=== PATIENT | female | born 1995 | race Caucasian/White ===

== ENCOUNTER 2021-02-04 11:48 | Inpatient (IN) | payer OTHER, MEDICARE, MEDICAID ==
[2021-02-04] MEDS ORDERED: Ondansetron ODT 4 MG TAB SL PRN (12:00)
[2021-02-04] MEDS ORDERED: Ondansetron PF 4 MG/2 ML Vial IVP PRN ×3 (12:00→15:00)
[2021-02-04] MEDS ORDERED: D5 1/2 NS w/20 mEq KCL 1,000 ML IV SCH (12:00)
[2021-02-04 12:12] LABS: #Basophils 0.1 thou/uL (0.0-0.2); #Eosinphils 0.1 thou/uL (0.0-0.7); #Lymphocytes 2.1 thou/uL (1.20-3.40); #Monocytes 0.2 thou/uL (0.11-0.59); #Neutrophils 8.8 thou/uL (1.40-6.50); %Basophils 0.6 % (0.0-1.0); %Lymphocytes 18.3 % (21.0-51.0); %Monocytes 2.1 % (0.0-10.0); Hemoglobin 11.6 g/dL (12.0-16.0); Mean Corpuscular HGB CONC 33.9 g/dL (32.0-36.0); Mean Corpuscular Volume 97.3 fL (78.0-98.0); Mean Platelet Volume 5.7 fL (7.4-10.4); Platelet Count 349 thou/uL (130-400); RBC Distribution Width 11.1 % (11.5-14.5); Red Blood Cell (RBC) Count 3.51 mill/uL (4.20-5.40); White Blood Cell (WBC) Count 11.3 thou/uL (4.8-10.8)
[2021-02-04 12:21] LABS: INR-International Normal Ratio 1.2; PTT 30.3 sec (22.9-36.1); Prothrombin Time 15.1 sec (12.0-14.7)
[2021-02-04 12:25] LABS: ALT (SGPT) 72 U/L (8-55); AST (SGOT) 114 U/L (5-34); Albumin 3.5 g/dL (3.5-5.0); Alcohol Less than 10 mg/dL (Less than 10); Alkaline Phosphatase 114 U/L (40-110); Anion Gap 11 mmol/L (10-20); BUN (Urea Nitrogen) 9 mg/dL (7.0-18.7); Bilirubin, Total 0.6 mg/dL (0.2-1.2); Calc. Creatinine Clearance 0 mL/min (70-130); Calcium 8.5 mg/dL (7.8-10.44); Carbon Dioxide 22 mmol/L (22-29); Chloride 109 mmol/L (98-107); Globulin 2.7 g/dL (2.4-3.5); Glucose 132 mg/dL (70-105); Lipase 89 U/L (8-78); Potassium 3.2 mmol/L (3.5-5.1); Protein, Total 6.2 g/dL (6.0-8.3); Sodium 139 mmol/L (136-145)
[2021-02-04] MEDS ORDERED: Ketorolac Tromethamine 30 MG/ML VIAL ONE (12:35)
[2021-02-04] MEDS ORDERED: Gentamicin 300 MG in Sodium Chloride 0.9% 100 ML IVPB SCH (12:45)
[2021-02-04 13:40] LABS: SARS-CoV-2 NAA Rapid Test Not Detected (NotDetected)
[2021-02-04 13:49] LABS: Bacteria/HPF 1+ HPF (None Seen); Bilirubin Negative (Negative); Blood, Urine 3+ (Negative); Clarity Turbid (Clear); Glucose, Urine (Dipstick) Normal (Negative); Ketone, Urine Trace mg/dL (Negative); Leukocyte Negative Leu/uL (Negative); Nitrite Negative (Negative); Protein, Urine (Dipstick) 200 mg/dL (Neg-Trace); RBC/HPF Greater than 50 HPF (0-3); Specific Gravity, Urine 1.028 (1.002-1.036); Squamous Epithelial 0-3 HPF (0-3); Urobilinogen 3 mg/dL (Less than 2)
[2021-02-04 13:55] LABS: Medtox Reader # READER 4
[2021-02-04 13:56] LABS: Amphetamine Detected (NotDetected); Barbiturates Screen Not Detected (NotDetected); Benzodiazepine Screen Not Detected (NotDetected); Cocaine Metabolite Screen Not Detected (NotDetected); Medtox Control Line Valid? VALID (VALID); Methadone Not Detected (NotDetected); Methamphetamine Detected (NotDetected); Opiate Screen Not Detected (NotDetected); Oxycodone Screen Not Detected (NotDetected); Phencyclidine (PCP) Not Detected (NotDetected); THC/Cannabinoid Screen Detected (NotDetected); Tricyclic Screen Not Detected (NotDetected)
[2021-02-04] MEDS ORDERED: Fentanyl 100 MCG/2 ML VIAL SLOW IVP SCH (14:15)
[2021-02-04] MEDS ORDERED: Fentanyl 100 MCG/2 ML VIAL ONE ×2 (14:19→16:42)
[2021-02-04] MEDS ORDERED: Dextrose 50% Abboject 50 ML SYRINGE SLOW IVP PRN (14:50)
[2021-02-04] MEDS ORDERED: Dextrose 5% in Water 1,000 ML IV PRN (14:50)
[2021-02-04] MEDS ORDERED: Morphine 2 MG/ML VIAL SLOW IVP PRN (14:50)
[2021-02-04] MEDS ORDERED: Sodium Chloride 0.9% 1,000 ML IV SCH (15:00)
[2021-02-04] MEDS ORDERED: Cyclobenzaprine 10 MG TAB PO PRN (15:00)
[2021-02-04] MEDS ORDERED: traMADol HCl 50 MG TAB PO PRN (15:01)
[2021-02-04] MEDS: Lactated Ringer's 1,000 ML IV SCH ×2 (15:30→23:50)
[2021-02-04] MEDS ORDERED: CEFAZOLIN 2 GM in Premix Bag 1 BAG IVPB SCH (16:30)
[2021-02-04 16:39] LABS: Magnesium 1.7 mg/dL (1.6-2.6); Phosphorus 2.7 mg/dL (2.3-4.7)
[2021-02-04] MEDS ORDERED: Midazolam HCl 2 mg/2 ml Vial ONE (16:42)
[2021-02-04] MEDS ORDERED: Magnesium Sulfate 2 GM in Sodium Chloride 0.9% 100 ML IVPB SCH (16:44)
[2021-02-04] MEDS ORDERED: Potassium Phosphate 30 MMOL, Magnesium Sulfate 2 GM in Sodium Chloride 0.9% 250 ML IVPB SCH (16:44)
[2021-02-04 17:09] LABS: Pregnancy Test - Urine (BHCG) Negative (Negative); Pregu Control Background? CLEAR/WHITE (CLR/WHITE); Pregu Control Bar Appear? YES (CONTROL BAR); Specific Gravity 1.028 (1.002-1.036)
[2021-02-04] MEDS ORDERED: PHENYLEPHRINE-NS 100 MCG/ML 10 ML SYRINGE ONE (17:18)
[2021-02-04] MEDS ORDERED: Lidocaine 1% (PF) 30 ML VIAL ONE (17:18)
[2021-02-04] MEDS ORDERED: ePHEDrine Sulfate 50 MG/10 ML VIAL ONE (17:18)
[2021-02-04] MEDS ORDERED: PROPOFOL 200 MG/20 ML VIAL ONE (17:18)
[2021-02-04] MEDS ORDERED: Rocuronium Bromide 10 MG/ML (10ML VIAL) ONE (17:18)
[2021-02-04] MEDS ORDERED: SUGAMMADEX SODIUM 200 MG/2 ML VIAL ONE (18:19)
[2021-02-04] MEDS: Ketorolac Tromethamine 30 MG/ML VIAL IVP SCH ×2 (19:42→23:01)
[2021-02-04] MEDS: Acetaminophen 500 MG TAB PO SCH ×2 (19:43→23:15)
[2021-02-04] MEDS: traMADol HCl 50 MG TAB PO SCH ×2 (19:45→23:00)
[2021-02-04] MEDS: Famotidine/PF 20 mg/2ml Vial SLOW IVP SCH (20:46)
[2021-02-04] MEDS: Senokot S 8.6-50 MG TAB PO SCH ×2 (20:46→21:52)
[2021-02-04] MEDS: Gabapentin 100 MG CAP PO SCH (20:46)
[2021-02-04] MEDS: CEFAZOLIN 2 GM in Premix Bag 1 BAG IVPB SCH (22:59)
[2021-02-05] MEDS: Morphine 4 MG/ML VIAL SLOW IVP PRN ×3 (00:19→17:41)
[2021-02-05 04:30] LABS: #Lymphocytes 0.8 thou/uL (1.20-3.40); #Monocytes 0.4 thou/uL (0.11-0.59); #Neutrophils 10.7 thou/uL (1.40-6.50); %Basophils 0.1 % (0.0-1.0); %Eosinophils 0.3 % (0.0-10.0); %Lymphocytes 6.8 % (21.0-51.0); %Neutrophils 89.9 % (42.0-75.0); Hemoglobin 7.5 g/dL (12.0-16.0); Mean Corpuscular HGB CONC 34.8 g/dL (32.0-36.0); Mean Corpuscular Hemoglobin 34.4 pg (27.0-31.0); Mean Corpuscular Volume 98.9 fL (78.0-98.0); Mean Platelet Volume 6.1 fL (7.4-10.4); Platelet Count 240 thou/uL (130-400); RBC Distribution Width 11.1 % (11.5-14.5); Red Blood Cell (RBC) Count 2.17 mill/uL (4.20-5.40)
[2021-02-05 04:38] LABS: Phosphorus 5.9 mg/dL (2.3-4.7)
[2021-02-05 04:44] LABS: Anion Gap 11 mmol/L (10-20); BUN (Urea Nitrogen) 11 mg/dL (7.0-18.7); Calc. Creatinine Clearance 136 mL/min (70-130); Calcium 7.7 mg/dL (7.8-10.44); Carbon Dioxide 23 mmol/L (22-29); Chloride 109 mmol/L (98-107); Glucose 156 mg/dL (70-105); Magnesium 2.1 mg/dL (1.6-2.6); Potassium 4.6 mmol/L (3.5-5.1); Sodium 138 mmol/L (136-145)
[2021-02-05] MEDS: CEFAZOLIN 2 GM in Premix Bag 1 BAG IVPB SCH ×3 (05:06→21:47)
[2021-02-05] MEDS: traMADol HCl 50 MG TAB PO SCH ×4 (05:07→23:39)
[2021-02-05] MEDS: Ketorolac Tromethamine 30 MG/ML VIAL IVP SCH ×3 (05:08→17:33)
[2021-02-05] MEDS: Acetaminophen 500 MG TAB PO SCH ×4 (05:09→23:40)
[2021-02-05] MEDS: Famotidine/PF 20 mg/2ml Vial SLOW IVP SCH ×2 (09:58→21:50)
[2021-02-05] MEDS: Gabapentin 100 MG CAP PO SCH ×3 (09:58→21:50)
[2021-02-05] MEDS: Ascorbic Acid 500 mg Chewable Tablet PO SCH ×2 (10:05→21:50)
[2021-02-05] MEDS: Ferrous Sulfate 325 MG TAB PO SCH ×2 (10:08→21:50)
[2021-02-05] MEDS: Polyethylene Glycol 3350 17 GM Packet PO SCH (10:09)
[2021-02-05] MEDS: Senokot S 8.6-50 MG TAB PO SCH ×2 (10:09→21:49)
[2021-02-05] MEDS: Lactated Ringer's 1,000 ML IV SCH ×2 (10:12→15:14)
[2021-02-05] MEDS ORDERED: Acetaminophen 500 MG TAB ONE (12:42)
[2021-02-05] MEDS ORDERED: traMADol HCl 50 MG TAB ONE (12:43)
[2021-02-05] MEDS ORDERED: Ketorolac Tromethamine 30 MG/ML VIAL ONE (12:43)
[2021-02-05 16:02] LABS: Hemoglobin 6.5 g/dL (12.0-16.0); Mean Corpuscular HGB CONC 33.9 g/dL (32.0-36.0); Mean Corpuscular Hemoglobin 33.4 pg (27.0-31.0); Mean Corpuscular Volume 98.4 fL (78.0-98.0); Mean Platelet Volume 6.1 fL (7.4-10.4); Platelet Count 212 thou/uL (130-400); RBC Distribution Width 11.1 % (11.5-14.5); Red Blood Cell (RBC) Count 1.94 mill/uL (4.20-5.40); White Blood Cell (WBC) Count 10.8 thou/uL (4.8-10.8)
[2021-02-05 16:26] LABS: Band 25 % (5-11); Eosinophils 2 % (0-10); Lymphocytes 19 % (21-51); MDiff Complete? YES; Monocytes 2 % (0-10); Neutrophil 52 % (42-75); Platelet Morphology Comment Appears Adequate; Polychromasia SLIGHT = 2-3 cells (100X) (0-2/hpf)
[2021-02-06 03:39] LABS: #Eosinphils 0.1 thou/uL (0.0-0.7); #Lymphocytes 2.6 thou/uL (1.20-3.40); #Monocytes 0.5 thou/uL (0.11-0.59); #Neutrophils 5.4 thou/uL (1.40-6.50); %Basophils 0.4 % (0.0-1.0); %Eosinophils 1.7 % (0.0-10.0); %Lymphocytes 30.4 % (21.0-51.0); %Monocytes 5.2 % (0.0-10.0); %Neutrophils 62.3 % (42.0-75.0); Hemoglobin 6.9 g/dL (12.0-16.0); Mean Platelet Volume 6.4 fL (7.4-10.4); Platelet Count 167 thou/uL (130-400); Red Blood Cell (RBC) Count 2.08 mill/uL (4.20-5.40); White Blood Cell (WBC) Count 8.6 thou/uL (4.8-10.8)
[2021-02-06 03:58] LABS: Anion Gap 10 mmol/L (10-20); BUN (Urea Nitrogen) 18 mg/dL (7.0-18.7); Calc. Creatinine Clearance 144 mL/min (70-130); Carbon Dioxide 23 mmol/L (22-29); Chloride 108 mmol/L (98-107); Glucose 106 mg/dL (70-105); Potassium 4.2 mmol/L (3.5-5.1); Sodium 137 mmol/L (136-145)
[2021-02-06] MEDS: traMADol HCl 50 MG TAB PO SCH ×4 (05:09→22:35)
[2021-02-06] MEDS: Acetaminophen 500 MG TAB PO SCH ×4 (05:10→22:35)
[2021-02-06] MEDS: CEFAZOLIN 2 GM in Premix Bag 1 BAG IVPB SCH ×3 (05:11→22:27)
[2021-02-06 05:29] VITALS: BMI 26.9
[2021-02-06] MEDS ORDERED: Morphine 4 MG/ML VIAL SLOW IVP PRN (05:41)
[2021-02-06] MEDS ORDERED: Ferrous Sulfate 325 MG TAB PO SCH (08:00)
[2021-02-06] MEDS ORDERED: Lidocaine 2% PF 5 ML VIAL FS SCH (09:00)
[2021-02-06] MEDS ORDERED: Ascorbic Acid 500 mg Chewable Tablet PO SCH (09:00)
[2021-02-06] MEDS ORDERED: Dextrose 5%-Lactated Ringers 1,000 ML IV SCH (10:15)
[2021-02-06] MEDS ORDERED: Midazolam HCl 2 mg/2 ml Vial ONE (10:21)
[2021-02-06] MEDS: Polyethylene Glycol 3350 17 GM Packet PO SCH (11:28)
[2021-02-06] MEDS: Senokot S 8.6-50 MG TAB PO SCH ×2 (11:28→20:03)
[2021-02-06] MEDS ORDERED: Midazolam HCl 2 mg/2 ml Vial IVP SCH (11:30)
[2021-02-06] MEDS ORDERED: Fentanyl 100 MCG/2 ML VIAL SLOW IVP SCH (11:30)
[2021-02-06] MEDS: Ascorbic Acid 500 mg Chewable Tablet PO SCH ×2 (11:31→19:57)
[2021-02-06] MEDS: Ferrous Sulfate 325 MG TAB PO SCH ×2 (11:31→19:57)
[2021-02-06] MEDS: Gabapentin 100 MG CAP PO SCH ×4 (11:39→19:57)
[2021-02-06] MEDS: Famotidine/PF 20 mg/2ml Vial SLOW IVP SCH ×3 (11:39→20:03)
[2021-02-06] MEDS ORDERED: CEFAZOLIN 2 GM in Premix Bag 1 BAG IVPB SCH (12:15)
[2021-02-06] MEDS ORDERED: Morphine 4 MG/ML VIAL SLOW IVP SCH ×2 (15:15→15:30)
[2021-02-06] MEDS: Ketorolac Tromethamine 30 MG/ML VIAL IVP SCH ×2 (17:55→22:35)
[2021-02-06] MEDS ORDERED: Ibuprofen 200 MG TAB PO SCH (22:00)
[2021-02-07] MEDS: Ketorolac Tromethamine 30 MG/ML VIAL IVP SCH ×4 (05:31→23:59)
[2021-02-07] MEDS: Acetaminophen 500 MG TAB PO SCH ×4 (05:31→23:58)
[2021-02-07] MEDS: traMADol HCl 50 MG TAB PO SCH ×4 (05:31→23:59)
[2021-02-07 07:12] LABS: #Eosinphils 0.2 thou/uL (0.0-0.7); #Monocytes 0.4 thou/uL (0.11-0.59); #Neutrophils 3.7 thou/uL (1.40-6.50); %Basophils 0.6 % (0.0-1.0); %Eosinophils 3.7 % (0.0-10.0); %Lymphocytes 31.1 % (21.0-51.0); %Monocytes 5.7 % (0.0-10.0); Mean Corpuscular HGB CONC 34.7 g/dL (32.0-36.0); Mean Platelet Volume 6.7 fL (7.4-10.4); Platelet Count 174 thou/uL (130-400); RBC Distribution Width 12.5 % (11.5-14.5); Red Blood Cell (RBC) Count 2.06 mill/uL (4.20-5.40); White Blood Cell (WBC) Count 6.3 thou/uL (4.8-10.8)
[2021-02-07 07:26] LABS: Anion Gap 8 mmol/L (10-20); BUN (Urea Nitrogen) 14 mg/dL (7.0-18.7); Calc. Creatinine Clearance 172 mL/min (70-130); Calcium 7.9 mg/dL (7.8-10.44); Carbon Dioxide 27 mmol/L (22-29); Chloride 107 mmol/L (98-107); Glucose 92 mg/dL (70-105); Potassium 4.4 mmol/L (3.5-5.1); Sodium 138 mmol/L (136-145)
[2021-02-07] MEDS: Ferrous Sulfate 325 MG TAB PO SCH ×2 (08:37→20:41)
[2021-02-07] MEDS: Ascorbic Acid 500 mg Chewable Tablet PO SCH ×2 (08:37→20:40)
[2021-02-07] MEDS: Cyclobenzaprine 10 MG TAB PO PRN ×2 (08:37→18:08)
[2021-02-07] MEDS: Polyethylene Glycol 3350 17 GM Packet PO SCH (08:37)
[2021-02-07] MEDS: Famotidine/PF 20 mg/2ml Vial SLOW IVP SCH ×3 (08:37→20:41)
[2021-02-07] MEDS: Gabapentin 100 MG CAP PO SCH ×3 (08:38→20:41)
[2021-02-07] MEDS: Senokot S 8.6-50 MG TAB PO SCH ×2 (08:38→20:42)
[2021-02-07] MEDS ORDERED: Fentanyl 100 MCG/2 ML VIAL ONE ×4 (11:31→17:34)
[2021-02-07] MEDS ORDERED: Dexmedetomidine 200 MCG/2 ML VIAL ONE (11:58)
[2021-02-07] MEDS ORDERED: Fentanyl 250 MCG/5 ML VIAL ONE (12:22)
[2021-02-07] MEDS ORDERED: Midazolam HCl 2 mg/2 ml Vial ONE (12:22)
[2021-02-07] MEDS ORDERED: PROPOFOL 200 MG/20 ML VIAL ONE (12:55)
[2021-02-07] MEDS ORDERED: Glycopyrrolate 0.2 MG/ML 5 ML SYRINGE ONE (12:55)
[2021-02-07] MEDS ORDERED: Dexamethasone 20 MG/5 ML VIAL ONE (12:55)
[2021-02-07] MEDS ORDERED: Ondansetron PF 4 MG/2 ML Vial ONE (12:55)
[2021-02-07] MEDS ORDERED: Lidocaine 1% PF 5 ML VIAL ONE (12:55)
[2021-02-07] MEDS ORDERED: Rocuronium Bromide 10 MG/ML (10ML VIAL) ONE (12:55)
[2021-02-07] MEDS ORDERED: Gentamicin 80 MG/2 ML VIAL ONE (14:10)
[2021-02-07] MEDS ORDERED: Ondansetron HCl/PF 4 MG/2 ML Vial IVP PRN (16:47)
[2021-02-07] MEDS ORDERED: Promethazine HCl 25 MG/ML VIAL SLOW IVP PRN (16:47)
[2021-02-07] MEDS ORDERED: Promethazine HCl 25 MG/ML VIAL IM PRN (16:47)
[2021-02-07] MEDS ORDERED: Fentanyl 100 MCG/2 ML VIAL SLOW IVP SCH (19:00)
[2021-02-07] MEDS: CEFAZOLIN 2 GM in Premix Bag 1 BAG IVPB SCH (20:40)
[2021-02-07] MEDS: lamoTRIgine 100 MG TAB PO SCH (20:41)
[2021-02-07] MEDS ORDERED: Morphine 4 MG/ML VIAL SLOW IVP PRN (20:54)
[2021-02-08] MEDS: CEFAZOLIN 2 GM in Premix Bag 1 BAG IVPB SCH ×3 (04:32→20:16)
[2021-02-08] MEDS: Acetaminophen 500 MG TAB PO SCH ×3 (05:34→17:36)
[2021-02-08] MEDS: traMADol HCl 50 MG TAB PO SCH ×4 (05:34→20:26)
[2021-02-08] MEDS: Ketorolac Tromethamine 30 MG/ML VIAL IVP SCH ×3 (05:35→17:37)
[2021-02-08 06:11] LABS: #Eosinphils 0.2 thou/uL (0.0-0.7); #Lymphocytes 1.5 thou/uL (1.20-3.40); #Monocytes 0.3 thou/uL (0.11-0.59); #Neutrophils 2.6 thou/uL (1.40-6.50); %Basophils 0.6 % (0.0-1.0); %Eosinophils 4.1 % (0.0-10.0); %Monocytes 6.1 % (0.0-10.0); %Neutrophils 57.3 % (42.0-75.0); Hemoglobin 7.8 g/dL (12.0-16.0); Mean Corpuscular HGB CONC 34.3 g/dL (32.0-36.0); Mean Corpuscular Hemoglobin 32.4 pg (27.0-31.0); Mean Corpuscular Volume 94.5 fL (78.0-98.0); Mean Platelet Volume 6.5 fL (7.4-10.4); Platelet Count 194 thou/uL (130-400); Red Blood Cell (RBC) Count 2.42 mill/uL (4.20-5.40); White Blood Cell (WBC) Count 4.6 thou/uL (4.8-10.8)
[2021-02-08 06:31] LABS: Anion Gap 9 mmol/L (10-20); BUN (Urea Nitrogen) 11 mg/dL (7.0-18.7); Calc. Creatinine Clearance 185 mL/min (70-130); Calcium 7.6 mg/dL (7.8-10.44); Carbon Dioxide 26 mmol/L (22-29); Chloride 105 mmol/L (98-107); Glucose 101 mg/dL (70-105); Magnesium 1.7 mg/dL (1.6-2.6); Phosphorus 3.6 mg/dL (2.3-4.7); Potassium 4.2 mmol/L (3.5-5.1); Sodium 136 mmol/L (136-145)
[2021-02-08] MEDS ORDERED: Magnesium 2 GM/50 ML 2 GM in Premix Bag 1 BAG IVPB SCH (07:00)
[2021-02-08] MEDS: lamoTRIgine 100 MG TAB PO SCH ×2 (08:43→20:21)
[2021-02-08] MEDS: Ascorbic Acid 500 mg Chewable Tablet PO SCH ×2 (08:43→20:24)
[2021-02-08] MEDS: Polyethylene Glycol 3350 17 GM Packet PO SCH (08:43)
[2021-02-08] MEDS: Famotidine/PF 20 mg/2ml Vial SLOW IVP SCH ×2 (08:44→20:26)
[2021-02-08] MEDS: Gabapentin 100 MG CAP PO SCH ×3 (08:44→20:24)
[2021-02-08] MEDS: Ferrous Sulfate 325 MG TAB PO SCH ×2 (08:44→20:24)
[2021-02-08] MEDS: Senokot S 8.6-50 MG TAB PO SCH ×2 (08:44→20:21)
[2021-02-08] MEDS ORDERED: traZODone HCl 150 MG TAB PO SCH ×2 (09:00→12:15)
[2021-02-09] MEDS: Acetaminophen 500 MG TAB PO SCH ×4 (00:57→12:37)
[2021-02-09] MEDS: traMADol HCl 50 MG TAB PO SCH ×4 (03:21→21:00)
[2021-02-09] MEDS: Cyclobenzaprine 10 MG TAB PO PRN ×2 (03:21→21:20)
[2021-02-09] MEDS: CEFAZOLIN 2 GM in Premix Bag 1 BAG IVPB SCH ×3 (03:24→21:32)
[2021-02-09 07:52] LABS: #Eosinphils 0.2 thou/uL (0.0-0.7); #Lymphocytes 1.2 thou/uL (1.20-3.40); #Monocytes 0.6 thou/uL (0.11-0.59); #Neutrophils 4.8 thou/uL (1.40-6.50); %Eosinophils 2.5 % (0.0-10.0); %Lymphocytes 17.6 % (21.0-51.0); %Monocytes 8.2 % (0.0-10.0); %Neutrophils 71.7 % (42.0-75.0); Hemoglobin 7.8 g/dL (12.0-16.0); Mean Corpuscular Hemoglobin 31.8 pg (27.0-31.0); Mean Corpuscular Volume 96.3 fL (78.0-98.0); Mean Platelet Volume 6.3 fL (7.4-10.4); Platelet Count 260 thou/uL (130-400); RBC Distribution Width 14.3 % (11.5-14.5); Red Blood Cell (RBC) Count 2.45 mill/uL (4.20-5.40); White Blood Cell (WBC) Count 6.8 thou/uL (4.8-10.8)
[2021-02-09 08:15] LABS: Anion Gap 9 mmol/L (10-20); BUN (Urea Nitrogen) 8 mg/dL (7.0-18.7); Calc. Creatinine Clearance 205 mL/min (70-130); Calcium 7.7 mg/dL (7.8-10.44); Carbon Dioxide 26 mmol/L (22-29); Chloride 103 mmol/L (98-107); Glucose 106 mg/dL (70-105); Magnesium 1.6 mg/dL (1.6-2.6); Phosphorus 3.2 mg/dL (2.3-4.7); Potassium 3.7 mmol/L (3.5-5.1); Sodium 134 mmol/L (136-145)
[2021-02-09] MEDS ORDERED: Magnesium 2 GM/50 ML 2 GM in Premix Bag 1 BAG IVPB SCH (09:00)
[2021-02-09] MEDS: Ascorbic Acid 500 mg Chewable Tablet PO SCH ×2 (09:44→21:04)
[2021-02-09] MEDS: Enoxaparin Sodium 40 MG/0.4 ML SYRINGE SC SCH ×2 (09:44→10:03)
[2021-02-09] MEDS: Famotidine/PF 20 mg/2ml Vial SLOW IVP SCH ×2 (09:44→21:03)
[2021-02-09] MEDS: Ferrous Sulfate 325 MG TAB PO SCH ×2 (09:45→21:00)
[2021-02-09] MEDS: Gabapentin 100 MG CAP PO SCH ×3 (09:45→21:01)
[2021-02-09] MEDS: lamoTRIgine 100 MG TAB PO SCH ×2 (09:46→20:59)
[2021-02-09] MEDS: Polyethylene Glycol 3350 17 GM Packet PO SCH (09:46)
[2021-02-09] MEDS: traZODone HCl 150 MG TAB PO SCH (09:47)
[2021-02-09] MEDS: Senokot S 8.6-50 MG TAB PO SCH ×2 (09:48→21:00)
[2021-02-09] MEDS: Ibuprofen 600 MG TAB PO SCH ×2 (12:31→21:03)
[2021-02-09] MEDS: Acetaminophen 325 MG TAB PO SCH ×2 (12:36→16:11)
[2021-02-10] MEDS: Acetaminophen 325 MG TAB PO SCH ×4 (00:09→17:40)
[2021-02-10] MEDS: traMADol HCl 50 MG TAB PO SCH ×4 (03:49→21:19)
[2021-02-10] MEDS: Cyclobenzaprine 10 MG TAB PO PRN (03:56)
[2021-02-10] MEDS: CEFAZOLIN 2 GM in Premix Bag 1 BAG IVPB SCH ×3 (05:34→21:16)
[2021-02-10] MEDS: Ibuprofen 600 MG TAB PO SCH ×2 (05:35→14:12)
[2021-02-10] MEDS: HYDROcodone/Acetaminophen 10/325 mg Tablet PO PRN (06:07)
[2021-02-10 07:54] LABS: #Eosinphils 0.2 thou/uL (0.0-0.7); #Lymphocytes 1.5 thou/uL (1.20-3.40); #Monocytes 0.2 thou/uL (0.11-0.59); %Basophils 0.1 % (0.0-1.0); %Eosinophils 2.6 % (0.0-10.0); %Lymphocytes 21.5 % (21.0-51.0); %Neutrophils 72.8 % (42.0-75.0); Hemoglobin 7.6 g/dL (12.0-16.0); Mean Corpuscular HGB CONC 33.3 g/dL (32.0-36.0); Mean Corpuscular Hemoglobin 32.3 pg (27.0-31.0); Mean Platelet Volume 5.9 fL (7.4-10.4); Platelet Count 317 thou/uL (130-400); RBC Distribution Width 13.8 % (11.5-14.5); Red Blood Cell (RBC) Count 2.34 mill/uL (4.20-5.40); White Blood Cell (WBC) Count 6.8 thou/uL (4.8-10.8)
[2021-02-10] MEDS: traZODone HCl 150 MG TAB PO SCH (09:08)
[2021-02-10] MEDS: Gabapentin 100 MG CAP PO SCH ×3 (09:08→21:17)
[2021-02-10] MEDS: lamoTRIgine 100 MG TAB PO SCH ×2 (09:09→21:18)
[2021-02-10] MEDS: Ferrous Sulfate 325 MG TAB PO SCH ×2 (09:11→21:17)
[2021-02-10] MEDS: Famotidine/PF 20 mg/2ml Vial SLOW IVP SCH ×2 (09:11→21:17)
[2021-02-10] MEDS: Enoxaparin Sodium 40 MG/0.4 ML SYRINGE SC SCH (09:11)
[2021-02-10] MEDS: Ascorbic Acid 500 mg Chewable Tablet PO SCH ×2 (09:11→21:16)
[2021-02-10] MEDS: Senokot S 8.6-50 MG TAB PO SCH ×2 (09:13→21:19)
[2021-02-10] MEDS: Polyethylene Glycol 3350 17 GM Packet PO SCH (09:13)
[2021-02-10] MEDS ORDERED: Magnesium 2 GM/50 ML 2 GM in Premix Bag 1 BAG IVPB SCH (09:15)
[2021-02-10] MEDS ORDERED: Magnesium Sulfate 2 GM in Sodium Chloride 0.9% 100 ML IVPB SCH (09:15)
[2021-02-10] MEDS: Ibuprofen 200 MG TAB PO SCH (22:58)
[2021-02-11] MEDS: Acetaminophen 325 MG TAB PO SCH ×4 (00:34→17:07)
[2021-02-11] MEDS: Ibuprofen 200 MG TAB PO SCH ×4 (00:49→20:55)
[2021-02-11] MEDS: HYDROcodone/Acetaminophen 10/325 mg Tablet PO PRN ×3 (00:50→17:07)
[2021-02-11] MEDS: traMADol HCl 50 MG TAB PO SCH ×4 (02:40→20:55)
[2021-02-11] MEDS: CEFAZOLIN 2 GM in Premix Bag 1 BAG IVPB SCH ×2 (05:11→14:05)
[2021-02-11] MEDS ORDERED: Furosemide 20 MG/2 ML VIAL SLOW IVP SCH (09:00)
[2021-02-11] MEDS: Enoxaparin Sodium 40 MG/0.4 ML SYRINGE SC SCH (09:04)
[2021-02-11] MEDS: Polyethylene Glycol 3350 17 GM Packet PO SCH (09:05)
[2021-02-11] MEDS: lamoTRIgine 100 MG TAB PO SCH ×2 (09:05→20:59)
[2021-02-11] MEDS: Senokot S 8.6-50 MG TAB PO SCH ×2 (09:05→20:59)
[2021-02-11] MEDS: traZODone HCl 150 MG TAB PO SCH (09:06)
[2021-02-11] MEDS: Ferrous Sulfate 325 MG TAB PO SCH ×2 (09:07→20:57)
[2021-02-11] MEDS: Ascorbic Acid 500 mg Chewable Tablet PO SCH ×2 (09:07→20:58)
[2021-02-11] MEDS: Gabapentin 100 MG CAP PO SCH ×3 (09:07→20:55)
[2021-02-11] MEDS: Famotidine/PF 20 mg/2ml Vial SLOW IVP SCH ×2 (09:08→09:16)
[2021-02-11 12:23] LABS: Band 11 % (5-11); Eosinophils 1 % (0-10); Hemoglobin 7.6 g/dL (12.0-16.0); Lymphocytes 16 % (21-51); MDiff Complete? YES; Mean Corpuscular HGB CONC 33.4 g/dL (32.0-36.0); Mean Corpuscular Hemoglobin 32.2 pg (27.0-31.0); Mean Corpuscular Volume 96.3 fL (78.0-98.0); Mean Platelet Volume 6.2 fL (7.4-10.4); Metamyelocyte 1 % (0-0); Monocytes 5 % (0-10); Myelocyte 2 % (0-0); Neutrophil 64 % (42-75); Platelet Count 443 thou/uL (130-400); Platelet Morphology Comment Appears Increased; Polychromasia SLIGHT = 2-3 cells (100X) (0-2/hpf); RBC Distribution Width 13.3 % (11.5-14.5); Red Blood Cell (RBC) Count 2.35 mill/uL (4.20-5.40)
[2021-02-11] MEDS: Cyclobenzaprine 10 MG TAB PO PRN (12:38)
[2021-02-11 13:32] LABS: Bacteria/HPF None Seen HPF (None Seen); Bilirubin Negative (Negative); Blood, Urine Negative (Negative); Clarity Clear (Clear); Glucose, Urine (Dipstick) Normal (Negative); Ketone, Urine Negative (Negative); Leukocyte Negative Leu/uL (Negative); Nitrite Negative (Negative); Protein, Urine (Dipstick) Negative (Neg-Trace); RBC/HPF 0-3 HPF (0-3); Specific Gravity, Urine 1.015 (1.002-1.036); Squamous Epithelial 0-3 HPF (0-3); Urobilinogen Normal mg/dL (Less than 2); WBC/HPF 0-3 HPF (0-3); pH, Urine 5.5 (5.0-9.0)
[2021-02-11 13:37] LABS: Urine Culture Reflex No No
[2021-02-12] MEDS: Acetaminophen 325 MG TAB PO SCH ×5 (00:01→23:37)
[2021-02-12] MEDS: HYDROcodone/Acetaminophen 10/325 mg Tablet PO PRN ×3 (01:22→21:37)
[2021-02-12] MEDS: traMADol HCl 50 MG TAB PO SCH ×5 (02:00→20:33)
[2021-02-12 05:41] LABS: #Eosinphils 0.3 thou/uL (0.0-0.7); #Lymphocytes 2.2 thou/uL (1.20-3.40); #Monocytes 0.7 thou/uL (0.11-0.59); #Neutrophils 3.6 thou/uL (1.40-6.50); %Basophils 0.2 % (0.0-1.0); %Eosinophils 3.7 % (0.0-10.0); %Lymphocytes 32.9 % (21.0-51.0); %Monocytes 9.5 % (0.0-10.0); %Neutrophils 53.6 % (42.0-75.0); Hemoglobin 7.3 g/dL (12.0-16.0); Mean Corpuscular HGB CONC 31.6 g/dL (32.0-36.0); Mean Corpuscular Hemoglobin 30.7 pg (27.0-31.0); Mean Corpuscular Volume 97.1 fL (78.0-98.0); Mean Platelet Volume 7.1 fL (7.4-10.4); Platelet Count 243 thou/uL (130-400); RBC Distribution Width 13.5 % (11.5-14.5); Red Blood Cell (RBC) Count 2.38 mill/uL (4.20-5.40); White Blood Cell (WBC) Count 6.8 thou/uL (4.8-10.8)
[2021-02-12 05:58] LABS: Anion Gap 10 mmol/L (10-20); BUN (Urea Nitrogen) 10 mg/dL (7.0-18.7); Calc. Creatinine Clearance 201 mL/min (70-130); Calcium 8.3 mg/dL (7.8-10.44); Carbon Dioxide 28 mmol/L (22-29); Chloride 102 mmol/L (98-107); Glucose 84 mg/dL (70-105); Magnesium 1.7 mg/dL (1.6-2.6); Phosphorus 4.6 mg/dL (2.3-4.7); Potassium 4.1 mmol/L (3.5-5.1); Sodium 136 mmol/L (136-145)
[2021-02-12] MEDS: Ibuprofen 200 MG TAB PO SCH ×3 (06:01→21:37)
[2021-02-12] MEDS: Polyethylene Glycol 3350 17 GM Packet PO SCH (09:00)
[2021-02-12] MEDS: Enoxaparin Sodium 40 MG/0.4 ML SYRINGE SC SCH (09:02)
[2021-02-12] MEDS: traZODone HCl 150 MG TAB PO SCH (09:02)
[2021-02-12] MEDS: Senokot S 8.6-50 MG TAB PO SCH ×2 (09:02→20:34)
[2021-02-12] MEDS: Ascorbic Acid 500 mg Chewable Tablet PO SCH ×3 (09:02→20:38)
[2021-02-12] MEDS: Ferrous Sulfate 325 MG TAB PO SCH ×2 (09:02→20:34)
[2021-02-12] MEDS: lamoTRIgine 100 MG TAB PO SCH ×2 (09:02→20:33)
[2021-02-12] MEDS: Gabapentin 100 MG CAP PO SCH ×3 (09:03→20:32)
[2021-02-12] MEDS: Cyclobenzaprine 10 MG TAB PO PRN (18:01)
[2021-02-13] MEDS: traMADol HCl 50 MG TAB PO SCH ×4 (03:27→20:48)
[2021-02-13] MEDS: Ibuprofen 200 MG TAB PO SCH ×3 (05:04→21:06)
[2021-02-13] MEDS: HYDROcodone/Acetaminophen 10/325 mg Tablet PO PRN ×2 (05:05→14:56)
[2021-02-13] MEDS: Acetaminophen 325 MG TAB PO SCH ×3 (05:05→18:13)
[2021-02-13] MEDS: traZODone HCl 150 MG TAB PO SCH (08:45)
[2021-02-13] MEDS: Senokot S 8.6-50 MG TAB PO SCH ×2 (08:45→20:53)
[2021-02-13] MEDS: Ferrous Sulfate 325 MG TAB PO SCH ×2 (08:46→20:52)
[2021-02-13] MEDS: Gabapentin 100 MG CAP PO SCH ×3 (08:46→20:48)
[2021-02-13] MEDS: lamoTRIgine 100 MG TAB PO SCH ×2 (08:47→20:52)
[2021-02-13] MEDS: Enoxaparin Sodium 40 MG/0.4 ML SYRINGE SC SCH (08:48)
[2021-02-13] MEDS: Ascorbic Acid 500 mg Chewable Tablet PO SCH ×2 (08:53→20:53)
[2021-02-13] MEDS: Polyethylene Glycol 3350 17 GM Packet PO SCH (08:54)
[2021-02-14] MEDS: Acetaminophen 325 MG TAB PO SCH ×2 (00:42→05:42)
[2021-02-14] MEDS: traMADol HCl 50 MG TAB PO SCH ×5 (02:21→20:44)
[2021-02-14] MEDS: HYDROcodone/Acetaminophen 10/325 mg Tablet PO PRN ×2 (02:21→08:24)
[2021-02-14] MEDS: Ibuprofen 200 MG TAB PO SCH (05:42)
[2021-02-14] MEDS: Gabapentin 100 MG CAP PO SCH ×3 (08:16→20:43)
[2021-02-14] MEDS: Senokot S 8.6-50 MG TAB PO SCH ×2 (08:17→20:43)
[2021-02-14] MEDS: Enoxaparin Sodium 40 MG/0.4 ML SYRINGE SC SCH (08:17)
[2021-02-14] MEDS: Ferrous Sulfate 325 MG TAB PO SCH ×2 (08:17→20:45)
[2021-02-14] MEDS: lamoTRIgine 100 MG TAB PO SCH ×2 (08:17→20:44)
[2021-02-14] MEDS: traZODone HCl 150 MG TAB PO SCH (08:17)
[2021-02-14] MEDS: Ascorbic Acid 500 mg Chewable Tablet PO SCH ×3 (08:17→20:44)
[2021-02-14] MEDS: Polyethylene Glycol 3350 17 GM Packet PO SCH (08:18)
[2021-02-14] MEDS: Acetaminophen 500 MG TAB PO SCH ×2 (14:16→19:09)
[2021-02-14] MEDS: cloNIDine 0.1 MG TAB PO SCH ×2 (14:17→19:09)
[2021-02-14] MEDS: Ibuprofen 600 MG TAB PO SCH ×2 (14:24→20:43)
[2021-02-14] MEDS: Cyclobenzaprine 10 MG TAB PO PRN (19:20)
[2021-02-15] MEDS: cloNIDine 0.1 MG TAB PO SCH ×4 (00:14→17:11)
[2021-02-15] MEDS: Acetaminophen 500 MG TAB PO SCH ×4 (00:17→17:11)
[2021-02-15] MEDS: traMADol HCl 50 MG TAB PO SCH ×3 (03:25→15:50)
[2021-02-15] MEDS: Ibuprofen 600 MG TAB PO SCH ×3 (05:26→21:32)
[2021-02-15] MEDS: Gabapentin 100 MG CAP PO SCH ×3 (09:19→21:32)
[2021-02-15] MEDS: Senokot S 8.6-50 MG TAB PO SCH ×2 (09:19→21:36)
[2021-02-15] MEDS: Ascorbic Acid 500 mg Chewable Tablet PO SCH ×2 (09:20→21:36)
[2021-02-15] MEDS: lamoTRIgine 100 MG TAB PO SCH ×2 (09:20→21:32)
[2021-02-15] MEDS: Enoxaparin Sodium 40 MG/0.4 ML SYRINGE SC SCH ×2 (09:20→21:35)
[2021-02-15] MEDS: Ferrous Sulfate 325 MG TAB PO SCH ×2 (09:20→21:32)
[2021-02-15] MEDS: Polyethylene Glycol 3350 17 GM Packet PO SCH (09:21)
[2021-02-15] MEDS: traZODone HCl 150 MG TAB PO SCH (09:21)
[2021-02-15] MEDS: Cyclobenzaprine 10 MG TAB PO PRN (19:25)
[2021-02-15] MEDS ORDERED: diphenhydrAMINE 25 MG CAP PO PRN (19:35)
[2021-02-15] MEDS ORDERED: Acetaminophen/Codeine 30-300mg Tablet PO SCH (23:59)
[2021-02-16] MEDS: cloNIDine 0.1 MG TAB PO SCH ×4 (00:46→16:47)
[2021-02-16] MEDS: Acetaminophen 325 MG TAB PO SCH ×4 (00:46→16:47)
[2021-02-16] MEDS: Acetaminophen/Codeine 30-300mg Tablet PO SCH ×4 (02:01→20:37)
[2021-02-16] MEDS: Ibuprofen 600 MG TAB PO SCH ×3 (05:30→20:41)
[2021-02-16] MEDS: Gabapentin 100 MG CAP PO SCH ×3 (08:58→20:42)
[2021-02-16] MEDS: traZODone HCl 150 MG TAB PO SCH (08:59)
[2021-02-16] MEDS: Ascorbic Acid 500 mg Chewable Tablet PO SCH ×2 (09:00→20:43)
[2021-02-16] MEDS: Polyethylene Glycol 3350 17 GM Packet PO SCH (09:01)
[2021-02-16] MEDS: Senokot S 8.6-50 MG TAB PO SCH ×2 (09:01→20:44)
[2021-02-16] MEDS: lamoTRIgine 100 MG TAB PO SCH ×2 (09:01→20:44)
[2021-02-16] MEDS: Enoxaparin Sodium 40 MG/0.4 ML SYRINGE SC SCH ×3 (09:02→21:04)
[2021-02-16] MEDS: Ferrous Sulfate 325 MG TAB PO SCH ×3 (09:02→20:43)
[2021-02-17] MEDS: Acetaminophen 325 MG TAB PO SCH ×4 (00:33→17:20)
[2021-02-17] MEDS: cloNIDine 0.1 MG TAB PO SCH ×4 (00:33→17:20)
[2021-02-17] MEDS: Acetaminophen/Codeine 30-300mg Tablet PO SCH ×4 (02:23→19:43)
[2021-02-17] MEDS: Ibuprofen 600 MG TAB PO SCH ×3 (05:02→19:46)
[2021-02-17] MEDS: Cyclobenzaprine 10 MG TAB PO PRN ×2 (05:02→17:19)
[2021-02-17] MEDS: Gabapentin 100 MG CAP PO SCH ×3 (08:52→19:45)
[2021-02-17] MEDS: traZODone HCl 150 MG TAB PO SCH (08:53)
[2021-02-17] MEDS: lamoTRIgine 100 MG TAB PO SCH ×2 (08:53→19:46)
[2021-02-17] MEDS: Ferrous Sulfate 325 MG TAB PO SCH ×2 (08:58→21:03)
[2021-02-17] MEDS: Ascorbic Acid 500 mg Chewable Tablet PO SCH ×2 (08:58→21:02)
[2021-02-17] MEDS: Senokot S 8.6-50 MG TAB PO SCH ×2 (08:58→21:03)
[2021-02-17] MEDS: Enoxaparin Sodium 40 MG/0.4 ML SYRINGE SC SCH ×2 (08:58→21:03)
[2021-02-17] MEDS: Polyethylene Glycol 3350 17 GM Packet PO SCH (08:58)
[2021-02-18] MEDS: cloNIDine 0.1 MG TAB PO SCH ×4 (01:41→17:45)
[2021-02-18] MEDS: Acetaminophen 325 MG TAB PO SCH ×4 (01:41→17:45)
[2021-02-18] MEDS: Acetaminophen/Codeine 30-300mg Tablet PO SCH ×4 (02:14→20:53)
[2021-02-18] MEDS: Ibuprofen 600 MG TAB PO SCH ×3 (06:18→20:53)
[2021-02-18] MEDS: Gabapentin 100 MG CAP PO SCH ×3 (07:52→20:52)
[2021-02-18] MEDS: lamoTRIgine 100 MG TAB PO SCH ×2 (07:52→20:53)
[2021-02-18] MEDS: traZODone HCl 150 MG TAB PO SCH (07:52)
[2021-02-18] MEDS: Polyethylene Glycol 3350 17 GM Packet PO SCH (09:05)
[2021-02-18] MEDS: Enoxaparin Sodium 40 MG/0.4 ML SYRINGE SC SCH ×2 (09:05→20:55)
[2021-02-18] MEDS: Ferrous Sulfate 325 MG TAB PO SCH ×2 (09:05→20:55)
[2021-02-18] MEDS: Ascorbic Acid 500 mg Chewable Tablet PO SCH ×2 (09:05→20:54)
[2021-02-18] MEDS: Senokot S 8.6-50 MG TAB PO SCH ×2 (09:05→20:55)
[2021-02-18] MEDS: Cyclobenzaprine 10 MG TAB PO PRN (11:11)
[2021-02-18] MEDS ORDERED: Morphine 4 MG/ML VIAL SLOW IVP SCH (11:15)
[2021-02-19] MEDS: Acetaminophen 325 MG TAB PO SCH ×4 (00:32→18:55)
[2021-02-19] MEDS: cloNIDine 0.1 MG TAB PO SCH ×4 (00:33→18:57)
[2021-02-19] MEDS: Acetaminophen/Codeine 30-300mg Tablet PO SCH ×4 (00:33→20:55)
[2021-02-19] MEDS: Cyclobenzaprine 10 MG TAB PO PRN (03:29)
[2021-02-19] MEDS: Ibuprofen 600 MG TAB PO SCH ×3 (06:31→21:02)
[2021-02-19] MEDS: Gabapentin 100 MG CAP PO SCH ×3 (08:18→20:57)
[2021-02-19] MEDS: traZODone HCl 150 MG TAB PO SCH (08:19)
[2021-02-19] MEDS: lamoTRIgine 100 MG TAB PO SCH ×2 (08:20→20:57)
[2021-02-19] MEDS: Ascorbic Acid 500 mg Chewable Tablet PO SCH ×2 (08:22→20:56)
[2021-02-19] MEDS: Polyethylene Glycol 3350 17 GM Packet PO SCH (08:22)
[2021-02-19] MEDS: Enoxaparin Sodium 40 MG/0.4 ML SYRINGE SC SCH ×2 (08:22→21:05)
[2021-02-19] MEDS: Ferrous Sulfate 325 MG TAB PO SCH ×2 (08:22→20:56)
[2021-02-19] MEDS: Senokot S 8.6-50 MG TAB PO SCH ×2 (08:23→20:59)
[2021-02-19 17:49] LABS: SARS-CoV-2 NAA Rapid Test Not Detected (NotDetected)
[2021-02-19 20:58] VITALS: BP 104/64; TEMP 98.1
[2021-02-19] MEDS ORDERED: Enoxaparin Sodium 30 MG/0.3 ML SYRINGE SC SCH (21:00)
[2021-02-20] MEDS: cloNIDine 0.1 MG TAB PO SCH (00:17)
[2021-02-20] MEDS: Acetaminophen 325 MG TAB PO SCH (00:18)
[2021-02-20] MEDS: Acetaminophen/Codeine 30-300mg Tablet PO SCH (03:22)
== END 2021-02-20 04:20 | disposition home or self-care (01) | DRG 956 ==
LOC: ERS 11:48 → EEVIPCON 11:48 → EDBD 11:48 → EEVIPCON 12:53 → CCU 12:53 → SURG A 02-06 18:35
PROVIDERS: ADMIT Specialist; ATTEND Specialist
PROC: 30233N1 Transfusion of Nonautologous Red Blood Cells into Peripheral Vein, Percutaneous Approach (ICD-10-PCS; principal; 2021-02-05)
PROC: 0QS Lower Bones, Reposition (ICD-10-PCS; 2021-02-05)
PROC: 0QSG05Z Reposition Right Tibia with External Fixation Device, Open Approach (ICD-10-PCS; 2021-02-05)
PROC: 0W9B30Z Drainage of Left Pleural Cavity with Drainage Device, Percutaneous Approach (ICD-10-PCS; 2021-02-06)
PROC: 0QSB04Z Reposition Right Lower Femur with Internal Fixation Device, Open Approach (ICD-10-PCS; 2021-02-07)
PROC: 0QSG04Z Reposition Right Tibia with Internal Fixation Device, Open Approach (ICD-10-PCS; 2021-02-07)
PROC: 0PSL04Z Reposition Left Ulna with Internal Fixation Device, Open Approach (ICD-10-PCS; 2021-02-07)
PROC: 0QSJ04Z Reposition Right Fibula with Internal Fixation Device, Open Approach (ICD-10-PCS; 2021-02-07)
PROC: 0QSH04Z Reposition Left Tibia with Internal Fixation Device, Open Approach (ICD-10-PCS; 2021-02-07)
PROC: 0QPJX5Z Removal of External Fixation Device from Right Fibula, External Approach (ICD-10-PCS; 2021-02-07)
PROC: 0QPGX5Z Removal of External Fixation Device from Right Tibia, External Approach (ICD-10-PCS; 2021-02-07)
DX: S82.401B Unspecified fracture of shaft of right fibula, initial encounter for open fracture type I or II (principal); S27.0XXA Traumatic pneumothorax, initial encounter; S72.301B Unspecified fracture of shaft of right femur, initial encounter for open fracture type I or II; S22.42XA Multiple fractures of ribs, left side, initial encounter for closed fracture; S22.43XA Multiple fractures of ribs, bilateral, initial encounter for closed fracture; S22.20XA Unspecified fracture of sternum, initial encounter for closed fracture; S32.010A Wedge compression fracture of first lumbar vertebra, initial encounter for closed fracture; S52.202A Unspecified fracture of shaft of left ulna, initial encounter for closed fracture; D62 Acute posthemorrhagic anemia; S82.201B Unspecified fracture of shaft of right tibia, initial encounter for open fracture type I or II; S42.001A Fracture of unspecified part of right clavicle, initial encounter for closed fracture; S82.52XA Displaced fracture of medial malleolus of left tibia, initial encounter for closed fracture; E87.6 Hypokalemia; F41.9 Anxiety disorder, unspecified; F43.10 Post-traumatic stress disorder, unspecified; F90.9 Attention-deficit hyperactivity disorder, unspecified type; V89.2XXA Person injured in unspecified motor-vehicle accident, traffic, initial encounter
CPT/HCPCS: 0240U; 36415; 36430; 51701; 70450; 71045; 71260; 72125; 72170; 74177; 76000; 80048; 80053; 80306; 80307; 81001; 81003; 81015; 81025; 82533; 83605; 83690; 83735; 84100; 85025; 85610; 85730; 86850; 86900; 86901; 87086; 90471; 93005; 93970; 94640; 96365; 96375; C1713; G0390; J0690; J1100; J1580; J1650; J1885; J1940; J2001; J2250; J2270; J2405; J2704; J3010; J3370; J3475; J3490; J7030; J7620; P9016; S0028